=== PATIENT | male | born 1935 | race Caucasian/White ===

== ENCOUNTER → 2019-04-22 09:37 | Outpatient (CLI) | payer MEDICARE, SELFPAY ==
--- NOTE | ~2019-04-22 | MR_ITS ---
EXAMINATION: MR shoulder RT wo con DATE: 04/22/2019 10:58 INDICATION: Right shoulder pain. TECHNIQUE: Magnetic resonance imaging (MRI) of the right shoulder was performed without intravenous c ontrast. Sequences included axial PD-weighted FS FSE, coronal oblique PD-weighted FS FSE and T2-weigh mindy FS FSE, and sagittal oblique T2-weighted FS FSE and T1-weighted FSE. COMPARISON: None. FINDINGS: Coracoacromial arch: The acromion undersurface is curved in morphology (type II). Subacromial spurring is noted. There is severe acromioclavicular joint osteoarthritis including inferiorly directed osteophytes. There is mil d subacromial/subdeltoid bursitis. Rotator cuff: There is severe supraspinatus and infraspinatus tendinopathy. There is a full-thickness tear of anter ior supraspinatus tendon measuring 7 mm anterior to posterior by 12 mm proximal to distal. There is a partial thickness bursal sided tear of infraspinatus tendon measuring 5 mm anterior to posterior by 10 mm proximal to distal by up to 90% tendon thickness. Teres minor tendon is normal. There is severe subscapularis tendinopathy. There is mild fatty atrophy of teres minor muscle belly, consistent with quadrilateral space syndrome. Biceps tendon and glenoid labrum: Biceps tendon is in bicipital groove. There is a partial tear of biceps tendon. There is a tear of gl enoid labrum from 9:00 to 3:00 (SLAP tear). Fluid: There is no glenohumeral joint effusion. There is a ganglion cyst anterior to subscapularis myotendin ous junction measuring 5.2 x 2.0 x 0.9 cm. Bones/cartilage: There is shallow partial-thickness cartilage loss of glenoid involving the central and superior artic ular surface. Humeral head cartilage is normal. IMPRESSION: 1. Severe rotator cuff tendinopathy and full-thickness rotator cuff tear. 2. Mild glenohumeral joint chondrosis. 3. Severe acromioclavicular joint osteoarthritis. 4. Mild subacromial/subdeltoid bursitis. 5. Ganglion cyst anterior to subscapularis myotendinous junction. 6. Mild fatty atrophy of teres minor muscle belly, consistent with quadrilateral space syndrome. Reviewed, dictated and finalized at location A. IMPRESSION: 1. Severe rotator cuff tendinopathy and full-thickness rotator cuff tear. 2. Mild glenohumeral joint chondrosis. 3. Severe acromioclavicular joint osteoarthritis. 4. Mild subacromial/subdeltoid bursitis. 5. Ganglion cyst anterior to subscapularis myotendinous junction. 6. Mild fatty atrophy of teres minor muscle belly, consistent with quadrilatera l space syndrome.
== END ==
PROVIDERS: PCP Family Medicine; Visit Provider Internal Medicine
DX: M65.4 Radial styloid tenosynovitis [de Quervain] (principal); S46.011A Strain of muscle(s) and tendon(s) of the rotator cuff of right shoulder, initial encounter; M19.011 Primary osteoarthritis, right shoulder; M75.51 Bursitis of right shoulder; M67.411 Ganglion, right shoulder; X58.XXXA Exposure to other specified factors, initial encounter
CPT/HCPCS: 73221